=== PATIENT | female | born 1985 | race Caucasian/White ===

== ENCOUNTER 2022-05-28 00:24 | Inpatient (IN) | payer BC, OTHER ==
[2022-05-28] MEDS ORDERED: HYDROcodone/Acetaminophen 5/325 mg Tablet PO PRN ×2 (00:50)
[2022-05-28] MEDS ORDERED: Ondansetron PF 4 MG/2 ML Vial IVP PRN (00:50)
[2022-05-28] MEDS ORDERED: Misoprostol 200 MCG TAB PR PRN (00:50)
[2022-05-28] MEDS ORDERED: Carboprost 250 MCG/ML AMP IM PRN (00:50)
[2022-05-28] MEDS ORDERED: Acetaminophen 500 MG TAB PO PRN (00:50)
[2022-05-28] MEDS ORDERED: Butorphanol Tartrate 1 MG/ML VIAL SLOW IVP PRN (00:50)
[2022-05-28] MEDS ORDERED: Ibuprofen 800 MG TAB PO PRN (00:50)
[2022-05-28] MEDS ORDERED: Methylergonovine 0.2 MG/ML VIAL IM PRN (00:50)
[2022-05-28] MEDS ORDERED: Diphenoxylate HCl/Atropine Tablet PO PRN ×2 (00:50)
[2022-05-28] MEDS ORDERED: hydrALAZINE 20 MG/ML VIAL SLOW IVP PRN ×2 (00:50→14:18)
[2022-05-28] MEDS ORDERED: Zolpidem Tartrate 5 MG TAB PO PRN (00:50)
[2022-05-28] MEDS ORDERED: Promethazine HCl 25 MG/ML VIAL IM PRN (00:50)
[2022-05-28] MEDS ORDERED: NS w/ Oxytocin 30 units 500 ML IV SCH ×2 (00:50)
[2022-05-28] MEDS ORDERED: Lidocaine 1% (PF) 30 ML VIAL SC PRN (00:50)
[2022-05-28] MEDS ORDERED: Tranexamic Acid 1,000 MG/10 ML VIAL IVP PRN (00:50)
[2022-05-28] MEDS: Lactated Ringer's 1,000 ML IV SCH ×3 (02:27→11:45)
[2022-05-28] MEDS: Misoprostol 100 MCG TAB VAG SCH ×4 (02:40→19:39)
[2022-05-28 03:25] LABS: HBSAg Index 0.12 S/CO (0-0.99); Hep B Surf Ag - L&D Non-Reactive S/CO (NonReactive)
[2022-05-28 03:27] VITALS: BMI 30.9
[2022-05-28 03:27] LABS: Syphilis Antibody Nonreactive (Nonreactive); Syphilis Antibody Index 0.03 S/CO (<1.00 Non-Reactive)
[2022-05-28 06:26] LABS: Mean Corpuscular HGB CONC 33.1 g/dL (32.0-36.0); Mean Corpuscular Hemoglobin 27.8 pg (27.0-33.0); Mean Corpuscular Volume 83.8 fl (81.6-98.3); Mean Platelet Volume 10.8 fl (7.4-10.4); Platelet Count 228 10x3/uL (150-450); RBC Distribution Width 14.2 % (11.5-14.5); Red Blood Cell (RBC) Count 3.96 10x6/uL (3.90-5.03); White Blood Cell (WBC) Count 8.7 10x3/uL (3.5-10.5)
[2022-05-28] MEDS ORDERED: Bupivacaine PF 0.5% 30 ML VIAL ONE (08:00)
[2022-05-28] MEDS ORDERED: Fentanyl 2 mcg/Bup 0.1% Cadd 100 ML ONE (11:30)
[2022-05-28] MEDS ORDERED: PHENYLEPHRINE-NS 100 MCG/ML 10 ML SYRINGE ONE (11:30)
[2022-05-28] MEDS ORDERED: Preparation H Ointment 28 GM TUBE PR PRN (14:18)
[2022-05-28] MEDS ORDERED: Boostrix 0.5 ML (Tdap) VIAL (>/=7 yrs of age) IM ONE (14:18)
[2022-05-28] MEDS ORDERED: Benzocaine-Menthol 82.5 ML CAN TOP PRN (14:18)
[2022-05-28] MEDS ORDERED: traMADol HCl 50 MG TAB PO PRN (14:18)
[2022-05-28] MEDS ORDERED: Bisacodyl 10 MG SUPP PR PRN (14:18)
[2022-05-28] MEDS ORDERED: Milk Of Magnesia 30 ML UDCUP PO PRN (14:18)
[2022-05-28] MEDS ORDERED: Lanolin Ointment 7 GM TUBE TOP PRN (14:18)
[2022-05-28] MEDS: Ibuprofen 800 MG TAB PO SCH (17:58)
[2022-05-28] MEDS: Ferrous Sulfate 325 MG TAB PO SCH (19:09)
[2022-05-28] MEDS: Docusate 100 MG CAP PO SCH (21:08)
[2022-05-29] MEDS: Ibuprofen 800 MG TAB PO SCH (05:04)
[2022-05-29] MEDS: Ferrous Sulfate 325 MG TAB PO SCH (08:25)
[2022-05-29] MEDS: Docusate 100 MG CAP PO SCH (08:26)
[2022-05-29] MEDS ORDERED: Prenatal Vitamin 1 TAB PO SCH (09:00)
[2022-05-29 11:44] VITALS: BP 103/51; TEMP 97.5
== END 2022-05-29 17:00 | disposition home or self-care (01) | DRG 807 ==
LOC: CSHLD 00:24 → CSHPP 16:35
PROVIDERS: ADMIT Obstetrics & Gynecology; ATTEND Obstetrics & Gynecology
PROC: 10E0XZZ Delivery of Products of Conception, External Approach (ICD-10-PCS; principal; 2022-05-28)
DX: O99.42 Diseases of the circulatory system complicating childbirth (principal); Z37.0 Single live birth; Z3A.39 39 weeks gestation of pregnancy; I48.91 Unspecified atrial fibrillation
CPT/HCPCS: 51702; 85027; 86780; 86850; 86900; 86901; 87340; J2590; J7120; S0020

== ENCOUNTER 2023-08-10 15:25 | Outpatient (CLI) | payer OTHER | END 2023-08-10 15:26 | disposition home or self-care (01) | LOC: CSHMAMMO 15:25 | PROVIDERS: ATTEND Family Medicine | DX: Z12.31 Encounter for screening mammogram for malignant neoplasm of breast (principal); Z80.3 Family history of malignant neoplasm of breast; Z91.89 Other specified personal risk factors, not elsewhere classified | CPT/HCPCS: 77063; 77067 ==

== ENCOUNTER 2024-09-08 14:12 | Outpatient (CLI) | payer OTHER | END 2024-09-08 14:13 | disposition home or self-care (01) | LOC: CSHMAMMO 14:12 | PROVIDERS: ATTEND Family Medicine | DX: Z12.31 Encounter for screening mammogram for malignant neoplasm of breast (principal); Z80.3 Family history of malignant neoplasm of breast; Z91.89 Other specified personal risk factors, not elsewhere classified | CPT/HCPCS: 77063; 77067 ==